=== PATIENT | male | born 1985 | race Caucasian/White ===

== ENCOUNTER 2016-04-28 11:23 | Emergency (ER) | payer MEDICAID, OTHER ==
--- OUTSIDE RECORDS SUMMARY | 2016-04-28 11:57 | XMS REPORT | Continuity of Care Document ---
:1985 Author Organization [facility] ([facility]) Address [address] [place] [address] Phone [phone] Care Team Providers Name Role Phone Monet Espinoza Primary Care Provider [phone] Source Comments This disclosure is being made pursuant to the Care Everywhere program, applicable federal and state laws, and may not contain all informaitonavailable regarding this patient.[facility] ([facility]) Active Allergies and Adverse Reactions No Known Allergies Current Medications Prescription Sig. Disp. Refills Start Date End Date Status dicyclomine 20 mg Take 1 Tab by mouth 120 Tab 2 02/09/2012 Active tablet 2 times daily. Indications: abdominal pain and diarrhea Active Problems Problem Noted Date Health counseling 02/09/2012 Tobacco abuse 02/09/2012 Diarrhea 01/30/2012 Boxer's fracture 04/12/2011 Immunizations Name Dates Previously Given Next Due Influenza, PF 02/09/2012 Social History Tobacco Use Types Packs/Day Years Used Date Former Smoker 0.3 1 Smokeless Tobacco: Current User Chew Tobacco Cessation:Ready to Quit: No; Counseling Given: No Comments:Chews 1 can per day Alcohol Use Drinks/Week oz/Week Comments Yes 0.0 Drinks several alcoholic beverages on weekends twice a month Last Filed Vital Signs Vital Sign Reading Time Taken Blood Pressure 126/80 02/09/2012 8:23 AM ASSISTED SALES REPRESENTATIVE Pulse 69 02/09/2012 8:23 AM ASSISTED SALES REPRESENTATIVE Temperature 35.8 C (96.4 F) 02/09/2012 8:23 AM ASSISTED SALES REPRESENTATIVE Respiratory Rate 12 01/30/2012 2:42 PM ASSISTED SALES REPRESENTATIVE Height 1.797 m (5' 10.75") 02/09/2012 8:23 AM ASSISTED SALES REPRESENTATIVE Weight 101.8 kg (224 lb 6.9 oz) 02/09/2012 8:23 AM ASSISTED SALES REPRESENTATIVE Body Mass Index 31.52 02/09/2012 8:23 AM ASSISTED SALES REPRESENTATIVE Oxygen Saturation 98% 01/30/2012 2:42 PM ASSISTED SALES REPRESENTATIVE Plan of Care Patient Goal Type Goal Lifestyle pt declines goal-setting today Health Maintenance Due Date Last Done Comments Hepatitis B Vaccine (1 of 3 1986 - Primary Series) MMR Vaccine 2004 Td Vaccine 2004 Varicella Vaccine (1 of 2 - 2004 Adult - No Evidence of Immunity) Influenza Vaccine: Seasonal 09/23/2015 02/09/2012 (#1) Lipid Disorder Screening 02/08/2017 02/09/2012 Tdap Vaccine Addressed 02/09/2012 Overridden with the (Declined) intention of not completing the topic Results from Last 3 Months Not on file
--- NOTE | 2016-04-28 12:02 | ERNOTE ---
Upper Extremity HPI - Narrative Date of Service: 04/28/16 - General Extremities Pain Location: shoulder: right Time Seen by Provider: 04/28/16 11:40 Source: patient Exam Limitations: no limitations - Immun/Allergies/Home Medications Immunizations: IMMUNIZATION HX Immunizations Up to Date Yes History of Influenza Vaccine No Hx Pneumococcal Vaccination No Allergies/Adverse Reactions: Allergies Allergy/AdvReac Type Severity Reaction Status Date / Time No Known Allergies Allergy Verified 04/28/16 11:36 Home Medications: HOME MEDICATIONS Cyclobenzaprine HCl [Flexeril] 10 mg PO TID PRN #30 tab 04/28/16 [Last Taken Unknown] Fluoxetine HCl [Prozac] 40 mg PO DAILY 04/28/16 [Last Taken Unknown] Naproxen [Naprosyn] 500 mg PO BID PRN #60 tab 04/28/16 [Last Taken Unknown] - History of Present Illness Narrative: Pt. comes in with c/o R lateral shoulder pain after he was hitting a security camera in an upward motion several times. Pt. denies any alleviating factors or prehospital treatment but states that movement exacerbates the symptoms. Review of Systems - Review of Systems Constitutional: Present: no symptoms reported EYE: Present: no symptoms reported ENT: Present: no symptoms reported Respiratory: Present: no symptoms reported. Absent: shortness of breath, cough , wheezing Cardiology: Present: no symptoms reported. Absent: chest pain, palpitations, edema Gastrointestinal/Abdominal: Present: no symptoms reported Musculoskeletal: Present: joint pain - R shoulder Neurological: Present: no symptoms reported. Absent: headache, dizziness/light- headedness, weakness, numbness Endocrine: Present: no symptoms reported Hematologic/Lymphatic: Present: no symptoms reported. Absent: easy bruising Psych: Present: no symptoms reported All Other Systems: All systems neg except as marked - Patient's Past Medical History Patient History - Medical: Chronic Pain, Depression Patient History - Cardiac/Respiratory: No pertinent hx Patient History - Cancer: No Hx of Cancer Patient History - Surgical Procedures: Appendectomy Patient History - Other: None - Social History Living Situations: home Abuse History: No History of abuse Psych History: Hx of Depression, Current tx/ever been on anti-depressants or anti-anxiety meds Smoking Status: Never smoker Alcohol Use: none Drug Use: none - Immunizations Immunizations Up to Date: Yes Hx Pneumococcal Vaccination: No History of Influenza Vaccine: No Physical Exam - Physical Exam General Appearance: Present: wd/wn, alert, no apparent distress Eye Exam: Normal inspection: bilateral, PERRL: bilateral, EOMI: bilateral Neck: Present: normal inspection Respiratory: Present: no respiratory distress, normal breath sounds, no accessory muscle use, chest nontender, lungs clear Cardiovascular/Chest: Present: regular rate, rhythm, no murmur, normal peripheral pulses Back Exam: Present: normal inspection Extremity Exam: Present: normal range of motion, extremity edema - R shoulder to mid forearm, other - crepitus with abduction of R arm beer can test negative. Slight subluxation of joint head in cup Neurological Exam: Present: alert, oriented, normal mood/affect, no motor/ sensory deficits Skin Exam: Present: normal color, warm/dry ED Progress - Vital Signs Patient's Vital Signs:: I have reviewed the patient's vital signs. Vital Signs: Vital Signs 04/28/16 11:32 Temperature 36.9 C Pulse Rate 74 Respiratory 16 Rate Blood Pressure 127/79 O2 Sat by Pulse 98 Oximetry - X-Ray X-Ray #1 X-Ray: elbow Interpretation: Reviewed by me X-ray Comments: no acute X-Ray #2 X-Ray: shoulder Interpretation: Reviewed by me X-ray Comments: mild separation of AC joint. - Progress/Reassessment Chief Complaint: Shoulder Injury/Pain Departure Clinical Impression: Right shoulder strain Qualifiers: Encounter type: initial encounter Qualified Code(s): S46.911A - Strain of unspecified muscle, fascia and tendon at shoulder and upper arm level, right arm , initial encounter - Departure Disposition: Home self-care Condition: Good Instructions: Shoulder Sprain Additional Instructions: Please follow up with primary at care home as you may need referral to orthopedics for further evaluation. Referrals: Lowell Miramontes DO [Primary Care Provider] - Prescriptions: Cyclobenzaprine HCl [Flexeril] 10 mg PO TID PRN #30 tab PRN Reason: MUSCLE SPASMS Naproxen [Naprosyn] 500 mg PO BID PRN #60 tab PRN Reason: Pain
[2016-04-28] MEDS ORDERED: KETOROLAC TROMETHAMINE 60 MG/2 ML VIAL IM ONE (12:06)
[2016-04-28] MEDS: KETOROLAC TROMETHAMINE 60 MG/2 ML VIAL IM ONE (12:09)
[2016-04-28 13:17] VITALS: BP 130/71
== END 2016-04-28 13:10 | disposition home or self-care (01) ==
LOC: ER 11:23
DX: S46.911A Strain of unspecified muscle, fascia and tendon at shoulder and upper arm level, right arm, initial encounter (principal)